=== PATIENT | male | born 1995 | race Caucasian/White ===

== ENCOUNTER → 2016-09-17 | Outpatient (CLI) | payer OTHER ==
--- NOTE | 2016-09-17 12:28 | DIAGNOSTIC IMAGING REPORT ---
LEFT FOOT CT CT DOSE: 176.09 mGy.cm HISTORY: Left foot pain. LEFT FOOT SPRAIN TECHNIQUE: Multiaxial CT images of the left foot were performed and reformatted in the sagittal and coronal plane without the use of contrast. A dose lowering technique was utilized adhering to the principles of ALARA. COMPARISON: None. FINDINGS: Soft tissue swelling with subcutaneous edema along the dorsolateral aspect of the midfoot. The distal tibia and fibula are intact. Tiny chip type fractures at the anterolateral aspect of the calcaneus. There is also a small slightly distracted fracture within the anterolateral aspect of the navicular bone. This demonstrates up to 3 mm of lateral displacement. The remaining bones of the foot are intact. The Lisfranc joint is well aligned. IMPRESSION: Small fractures involving the anterolateral aspect of the navicular bone and calcaneus as described above. Electronically signed by: Giovanny Schneider M.D. 09/17/2016 12:26 PM Dictated Date/Time: 09/17/2016 12:20 PM
== END | disposition home or self-care (01) ==
LOC: C.CTS 11:04
PROVIDERS: ATTEND Physician Assistant
DX: S93.602A Unspecified sprain of left foot, initial encounter (principal); X58.XXXA Exposure to other specified factors, initial encounter